=== PATIENT | male | born 1980 | race African-American/Black ===

== ENCOUNTER 2018-10-11 13:34 | Emergency (ER) | payer BC ==
[~2018-10-11] VITALS: Ht 185.4 cm; Wt 108.9 kg
[2018-10-11] MEDS ORDERED: ONDANSETRON HCL INJ 2MG/ML 2ML 2 MG/ML VIAL IV ONE (13:51)
[2018-10-11] MEDS ORDERED: LORAZEPAM 1 MG TAB PO ONE (14:00)
[2018-10-11] MEDS ORDERED: HYDROMORPHONE 2MG/ML 2 MG/ML ML IV ONE (14:00)
--- NOTE | 2018-10-11 15:41 | Diagnostic Imaging Report ---
EXAMINATION: MRI of the lumbar spine without contrast HISTORY: Low back pain radiating to the bilateral lower extremities, radiculopathy along the L5 distribution COMPARISON: None. TECHNIQUE: Sagittal T1, T2, STIR; axial T2 and proton density. FINDINGS: It is assumed that there are 5 lumbar vertebrae. Curvature/Alignment: Normal lordosis. Vertebrae: No evidence of recent fracture, infection, or neoplasm. Conus: Normal, terminating at L1 Cauda equina: Unremarkable. Lower thoracic: Unremarkable. Paraspinal soft tissues: Unremarkable. Degenerative changes: L1-L2: Unremarkable. L2-L3: Unremarkable. L3-L4: Minimal symmetric disc bulge without canal or foraminal stenosis. L4-L5: Mild slightly asymmetric to left disc bulge with underlying posterior annular fissure. Minimal narrowing of the left lateral recess. Minimal bilateral foramina narrowing. L5-S1: Mild symmetric disc bulge with small posterior central annular fissure. Mild facet arthrosis. No significant spinal canal or foraminal stenoses. IMPRESSION: Mild degenerative changes at L4-5 and L5-S1 without significant spinal canal or foraminal stenosis. Particularly no evidence of nerve root compression. Signed by: Dr. Doreen Haddad M.D. on 10/11/2018 3:38 PM
== END 2018-10-11 16:53 | disposition home or self-care (01) ==
LOC: ER 13:34
DX: M54.5 Low back pain (principal)
CPT/HCPCS: 72148; 99282; J1170; J2405

== ENCOUNTER → 2020-06-01 | Outpatient (CLI) | payer OTHER ==
[~2020-06-01] MED LIST: COVID-19 VACC, MRNA(MODERNA)/PF 100 MCG/0.5 ML VIAL IM ONE
== END ==
LOC: VACCPMC 08:00
DX: Z23 Encounter for immunization (principal); Z20.822 Contact with and (suspected) exposure to COVID-19

== ENCOUNTER → 2020-06-28 | Outpatient (CLI) | payer OTHER | END | DRG 951 | LOC: VACCPMC 08:46 | DX: Z23 Encounter for immunization (principal); Z20.822 Contact with and (suspected) exposure to COVID-19 | CPT/HCPCS: 0012A; 91301 ==